=== PATIENT | male | born 1985 | race Hispanic/Latino ===

== ENCOUNTER 2016-05-15 21:47 | Emergency (ER) | payer OTHER ==
[2016-05-15 22:48] LABS: Urine Bilirubin Negative (NEGATIVE); Urine Blood Negative /ul (NEGATIVE); Urine Ketone Negative (NEGATIVE); Urine Nitrite Negative (NEGATIVE); Urine Protein Negative (NEGATIVE); Urine Specific Gravity 1.025 SP.GR. (1.005-1.030); Urine Urobilinogen Normal (NORMAL); Urine pH 6.5 pH (5.0-7.0)
[2016-05-15 23:06] LABS: Urine Appearance Clear; Urine Bacteria TRACE; Urine Color Yellow; Urine Mucus TRACE; Urine RBC 0-5 /hpf (0-5); Urine WBC None Seen /hpf (0-5)
[2016-05-16 00:10] VITALS: BP 113/65
--- NOTE | 2016-05-16 00:51 | ERNOTE ---
ER Male HPI Stated Complaint: URINARY PROBLEM Time Seen by Provider: 05/16/16 00:30 Source: patient, family - Exam Limitations: no limitations Immunizations: IMMUNIZATION HX Immunizations Up to Date Yes History of Influenza Vaccine No Hx Pneumococcal Vaccination No Allergies/Adverse Reactions: Allergies No Known Allergies Allergy (Verified 05/15/16 22:28) Home Medications: HOME MEDICATIONS NK [No Home Medication] 05/15/16 [Last Taken Unknown] - History of Present Illness Narrative: PT HAS BEEN HAVING SENSATION OF BLADDER BE FULL AND HAVING FREQUENT URINATION 6 - 8 TIMES A DAY. NO PAIN. NO FEVER. NO BLOOD IN HIS URINE. NO CHANGE IN STREAM OR PROBLEMS WITH DISCHARGE OR RASH OR HERNIA. HE HAS MILD CEREBRAL PALSY BUT IS NOT ON ANY MEDS AND HAS NEVER HAD URINE PROBLEMS. HE HAS BEEN WORKING MORE THAN BEFORE AND IS DRINKING MORE FLUIDS. Timing: Present: constant Quality: Present: mild, fullness Onset Location: Present: suprapubic Radiation: Present: none Activities at Onset: Present: none Prior Abdominal Problems: Present: none Sexual [place] History: Present: single partner Associated Symptoms: Present: denies symptoms Review of Systems - Review of Systems Constitutional: Present: See HPI Genitourinary: Present: See HPI, frequency All Other Systems: All systems neg except as marked - Patient's Past Medical History Patient History - Medical: No pertinent hx Patient History - Cardiac/Respiratory: No pertinent hx Patient History - Cancer: No Hx of Cancer Patient History - Surgical Procedures: Other Patient History - Other: None - Social History Living Situations: home Psych History: No pertinent hx Smoking Status: Current every day smoker Patient requests Smoking Cessation Consult: No Initiate information on Smoking Cessation: No Alcohol Use: none Drug Use: none - Immunizations Immunizations Up to Date: Yes Hx Pneumococcal Vaccination: No History of Influenza Vaccine: No Physical Exam - Physical Exam General Appearance: Present: wd/wn, alert, no apparent distress Gastrointestinal/Abdominal: Present: normal bowel sounds, nontender, nondistended, soft, no organomegaly Male Genitals Exam: Present: normal genitalia - CIRCUMCISED, no hernia. Absent : epididymal tenderness, inguinal tenderness, lesions, scrotum tenderness (R), urethral discharge Back Exam: Present: normal inspection, normal range of motion, no CVA tenderness , no vertebral tenderness - HE DOES HAVE MILD SCOLIOSIS Neurological Exam: Present: alert, oriented, normal mood/affect Skin Exam: Present: normal color, warm/dry ED Progress - Results and Orders Patient's Lab Results:: I have reviewed the patient's lab results. Results and Orders: HIS URINE IS CLEAR OF ANY ABNORMALITY. - Vital Signs Vital Signs: Vital Signs 05/15/16 05/16/16 22:22 00:10 Temperature 36.9 C 36.6 C Pulse Rate 62 69 Respiratory 18 14 Rate Blood Pressure 120/70 113/65 O2 Sat by Pulse 100 98 Oximetry - Progress/Reassessment Chief Complaint: Genitourinary Problem Departure Clinical Impression: Frequency of urination - Departure Disposition: Home self-care Instructions: Urinary Frequency, Adult Additional Instructions: I FIND NOT ABNORMALITY TONIGHT. YOUR URINE IS CLEAR . YOU MAY SIMPLY BE DRINKING MORE THAN USUAL WHICH IS NOT A BAD THING. IF CONTINUING TO HAVE CONCERNS FOLLOW UP WITH YOUR FAMILY DOCTOR FOR RECHECK. Referrals: Fred Johnson MD [Primary Care Provider] -
--- OUTSIDE RECORDS SUMMARY | 2016-05-16 00:51 | XMS REPORT | Continuity of Care Document ---
:1985 Author Organization [facility] ([facility]) Address [address] [place] [address] Phone [phone] Care Team Providers Name Role Phone Provider, No-Primary Care Primary Care Provider Unavailable Source Comments This disclosure is being made pursuant to the Care Everywhere program, applicable federal and state laws, and may not contain all informaitonavailable regarding this patient.[facility] ([facility]) Active Allergies and Adverse Reactions Not on File Current Medications No known medications Active Problems Problem Noted Date Glaucoma suspect 11/27/2009 Social History Tobacco Use Types Packs/Day Years Used Date Never Assessed Plan of Care Health Maintenance Due Date Last Done Comments Hepatitis B Vaccine (1 of 3 - Primary Series) 1985 Tdap Vaccine 10/27/1994 Lipid Disorder Screening 10/27/2001 MMR Vaccine 10/27/2001 Td Vaccine 10/27/2001 Varicella Vaccine (1 of 2 - Adult - No Evidence of 10/27/2001 Immunity) Influenza Vaccine: Seasonal (#1) 09/15/2015 Results from Last 3 Months Not on file
== END 2016-05-16 00:48 | disposition home or self-care (01) ==
LOC: ER 21:47
DX: R35.0 Frequency of micturition (principal)